=== PATIENT | male | born 1955 | race African-American/Black ===

== ENCOUNTER 2024-02-29 12:00 | Emergency (ER) | payer MEDICARE, BC ==
[~2024-02-29] VITALS: Ht 172.7 cm; Wt 105.0 kg
[2024-02-29 12:05] VITALS: O2SAT 97
[2024-02-29] MEDS ORDERED: MECLIZINE 25MG TABLET PO ONE (13:30)
[2024-02-29] MEDS: MECLIZINE 12.5MG TABLET PO SCH (13:39)
[2024-02-29 14:53] LABS: BASOPHILS % 0.4 % (0.0-2.0); EOSINOPHILS % 0.4 % (0.0-5.0); HEMATOCRIT. 42.7 % (42.0-52.0); HEMOGLOBIN. 14.2 g/dL (14.0-18.0); MEAN CORPUSCULAR HEMOGLOBIN 31.1 pg (28.0-32.0); MEAN CORPUSCULAR HGB CONC 33.2 g/dL (31.0-37.0); MEAN CORPUSCULAR VOLUME 93.7 fL (80.0-94.0); MEAN PLATELET VOLUME 9.1 fl (7.4-10.4); MONOCYTES % 5.5 % (2.0-8.0); NEUTROPHILS % 71.7 % (40.0-76.0); PLATELET 175 x1000/uL (130-400); RED BLOOD CELL COUNT 4.56 mill/uL (4.7-6.1); RED CELL DISTRIBUTION WIDTH 14.1 % (11.6-14.6); WHITE BLOOD COUNT 5.2 x1000/uL (4.5-11.0)
[2024-02-29 15:14] LABS: CARBON DIOXIDE 24 mEq/L (21-32); CHLORIDE 107 mEq/L (98-107); SODIUM 139 mEq/L (136-145)
[2024-02-29 15:15] LABS: CALCIUM 9.4 mg/dL (8.7-10.4)
[2024-02-29 15:19] LABS: CREATININE 0.9 mg/dL (0.6-1.3)
[2024-02-29 15:20] LABS: GLUCOSE 103 mg/dL (70-105); TROPONIN I HIGH SENSITIVITY 8 ng/L (3.0-53); UREA NITROGEN BLOOD 9 mg/dL (9-23)
[2024-02-29 15:21] LABS: ALANINE AMINOTRANSFERASE 32 IU/L (10-49); ASPARTATE AMINOTRANSFERASE 24 IU/L (<34)
[2024-02-29 15:22] LABS: ALBUMIN 4.6 g/dL (3.2-4.8); BILIRUBIN DIRECT 0.2 mg/dL (<=3.0); BILIRUBIN TOTAL 0.7 mg/dL (0.1-1.0)
[2024-02-29 17:35] VITALS: BP 155/78; PULSE 68; RESP 16; TEMP 98.4
== END 2024-02-29 17:36 | disposition home or self-care (01) ==
LOC: ER 12:28
DX: R42 Dizziness and giddiness (principal); E11.9 Type 2 diabetes mellitus without complications; I10 Essential (primary) hypertension; F10.20 Alcohol dependence, uncomplicated
CPT/HCPCS: 99284; 70450; 80076; 80048; 83735; 85025; 84484; 36415; 93005; J8597